=== PATIENT | female | born 1985 | race Hispanic/Latino ===

== ENCOUNTER 2020-08-12 14:35 | Day surgery (SDC) | payer BC ==
[~2020-08-12] VITALS: Ht 165.1 cm; Wt 99.8 kg
[2020-08-12] VITALS (17 sets, daily range): BP systolic 112–143; BP diastolic 72–85
[2020-08-12] MEDS ORDERED: CEFTRIAXONE SODIUM 1 GM ONE (15:32)
[2020-08-12] MEDS ORDERED: SODIUM CHLORIDE 0.9% 50 ML IV ONE (15:32)
[2020-08-12] MEDS ORDERED: PROPOFOL 10 MG/ML 20ML VIAL IV ONE (16:44)
[2020-08-12] MEDS ORDERED: MIDAZOLAM HCL 1 MG/ML 2ML VIAL ONE (16:44)
[2020-08-12] MEDS ORDERED: FENTANYL CITRATE PF 50 MCG/1 ML 5ML AMP IV ONE (16:44)
[2020-08-12] MEDS ORDERED: IBUP-2070 PO (16:59)
[2020-08-12] MEDS ORDERED: IOHEXOL-350 50ML VIAL IV ONE (17:00)
[2020-08-12] MEDS ORDERED: ROCURONIUM 10MG/1ML SYR 10 MG/ML ML ONE (17:21)
[2020-08-12] MEDS ORDERED: SODIUM CHLORIDE 0.9% 1000ML 1,000 ML IV ONE (17:22)
[2020-08-12] MEDS ORDERED: DEXAMETHASONE SOD PHOSPHATE 10MG/ML 1ML VIAL ONE (17:55)
[2020-08-12] MEDS ORDERED: GENTAMICIN 80 MG/NS 100 ML PB 100 ML IV ONE (17:57)
[2020-08-12] MEDS ORDERED: PHENAZOPYRIDINE HCL 200 MG TABLET ONE (18:35)
== END 2020-08-12 19:46 | disposition home or self-care (01) ==
LOC: EDH 14:35 → DAH 14:36
PROVIDERS: ATTEND Urology
DX: N13.6 Pyonephrosis (principal); B96.20 Unspecified Escherichia coli [E. coli] as the cause of diseases classified elsewhere; E66.01 Morbid (severe) obesity due to excess calories; K21.9 Gastro-esophageal reflux disease without esophagitis; Z79.899 Other long term (current) drug therapy
CPT/HCPCS: 52332; 52352; 74420; 82948 ×2; 87426; A4344; A4358; C1758; C1769; C2617; J0696; J1100; J1580; J2250; J2704; J3010; J7030; J7120; Q9967